=== PATIENT | female | born 1970 | race Caucasian/White ===

== ENCOUNTER 2022-05-18 01:24 | Emergency (ER) | payer BC ==
[2022-05-18 02:18] LABS: Appearance CLEAR (CLEAR); Bilirubin NEGATIVE (NEGATIVE); Dipstick done @ ? MAIN LAB; Glucose NEGATIVE (NEGATIVE); Ketones NEGATIVE (NEGATIVE); Nitrite NEGATIVE (NEGATIVE); Protein,Urine Dip NEGATIVE (Negative); RBC NEGATIVE Ery/ul (0-5); Urobilinogen 0.2 mg/dL (0-1)
[2022-05-18 02:20] LABS: Bacteria RARE /HPF (NEGATIVE); Mucus SLIGHT /HPF (NEGATIVE); Urine Cultured Indicated? NO
[2022-05-18 02:23] LABS: INFLUENZA B NEGATIVE (NEGATIVE); RESPIRATORY SYNCTIAL VIRUS NEGATIVE (Negative); SARS-CoV-2 Xpert Express NEGATIVE (NEGATIVE)
[2022-05-18 02:24] LABS: INFLUENZA A POSITIVE (NEGATIVE)
[2022-05-18] MEDS ORDERED: Sodium Chloride 0.9% 1000 ML 1,000 ML ONE (02:27)
[2022-05-18] MEDS ORDERED: Sodium Chloride 0.9% 1000 ML 1,000 ML IV SCH (02:30)
--- NOTE | 2022-05-18 02:34 | ERPHSYRPT ---
- History of Present Illness Time Seen by Provider: 05/18/22 02:29 Exam Limitations: no limitations Patient Subjective Stated Complaint: cough, congestion, fatigue x2 weeks. Triage Nursing Assessment: pt ambulated into ER without diff, spouse at bedside. Pt c/o feeling sick x2 weeks and has been treated for RSV due to her grandbaby having it. Pt has been treated over the last 2 weeks with amoxicillin, prednisone, augmentin and promethazine. Pt has had a fever off and on, night sweats, nonprod cough, headache, loss of taste and smell, and fatigue. Lungs clear but diminished throughout ant and post, heart tones reg. Physician History: Patient is a 51-year-old female presents to our ED with 2-week history of feeling unwell. Patient has been experiencing fever cough shortness of breath. Patient was exposed to RSV. Patient did follow-up with her primary care provider. Patient was treated with amoxicillin and prednisone. Patient did not significantly improve and she was then treated with Augmentin. Patient currently on Augmentin. Patient denies pain but states she has lost her taste. No nausea or vomiting. No diarrhea. No rash. Patient has a history of COVID with subsequent chronic recurrent pericarditis. Patient is on colchicine for this. 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 Patient voices no other complaints or concerns at this time. Portions of this note were created with voice recognition technology. There may be grammatical, spelling, punctuation or sound alike errors Timing/Duration: today Severity: moderate Modifying Factors: Improves With: nothing Allergies/Adverse Reactions: acetaminophen [From Vicodin] Allergy (Severe, Verified 05/18/22 01:47) Tightness of Throat hydrocodone [From Vicodin] Allergy (Severe, Verified 05/18/22 01:47) Tightness of Throat Home Medications: Amox Tr/Potass Clav. 875 mg [Augmentin 875-125 Tablet] 1 tab PO BID 05/18/22 [History] Colchicine 0.6 mg PO HS 05/18/22 [History] Cyanocobalamin 1000 Mcg/ml [Cyanocobalamin B-12 1000 MCG/ML] 1,000 mcg SQ UD 05/18/22 [History] Meloxicam [Mobic] 7.5 mg PO HS 05/18/22 [History] Prednisone 20 mg [Deltasone 20 mg] 1 tab PO DAILY 05/18/22 [History] Promethazine/Dextromethorphan [Promethazine-Dm 6.25-15 mg/5Ml] 5 ml PO Q6H PRN PRN 05/18/22 [History] Propranolol HCl 60 mg PO HS 05/18/22 [History] Ranolazine 500 MG [Ranexa 500 MG] 1 tab PO HS 05/18/22 [History] Topiramate [Topamax] 50 mg PO HS 05/18/22 [History] Venlafaxine HCl [Effexor Xr] 150 mg PO HS 05/18/22 [History] Hx Tetanus, Diphtheria Vaccination/Date Given: Yes Hx Influenza Vaccination/Date Given: No Hx Pneumococcal Vaccination/Date Given: No Travel Risk - International Travel Have you traveled outside of the country in past 3 weeks: No - Coronavirus Screening Are you exhibiting any of the following symptoms?: Yes Symptoms: Fever, Cough: New Onset, Shortness of Breath, Loss of Taste or Smell, Headaches/Body Aches/Fatigue Close contact with a COVID-19 positive Pt in past 14-21 Days: No - Vaccine Status Have you recieved a Covid-19 vaccination: Yes 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 - Review of Systems Constitutional: No Symptoms, No Fever, No Chills Eyes: No Symptoms Ears, Nose, & Throat: No Symptoms Respiratory: No Symptoms, No Cough, No Dyspnea Cardiac: No Symptoms, No Chest Pain, No Edema, No Syncope Abdominal/Gastrointestinal: No Symptoms, No Abdominal Pain, No Nausea, No Vomiting, No Diarrhea Genitourinary Symptoms: No Symptoms, No Dysuria Musculoskeletal: No Symptoms, No Back Pain, No Neck Pain Skin: No Symptoms, No Rash Neurological: No Symptoms, No Dizziness, No Focal Weakness, No Sensory Changes Psychological: No Symptoms Endocrine: No Symptoms Hematologic/Lymphatic: No Symptoms Immunological/Allergic: No Symptoms All Other Systems: Reviewed and Negative - Past Medical History Pertinent Past Medical History: Yes Neurological History: Migraines Cardiac History: No Pertinent History Respiratory History: Bronchitis, Pneumonia Endocrine Medical History: Hypothyroidism Musculoskeletal History: Fibromyalgia, Other Other Medical History: bone spur on R foot. covid +. pericarditis - Past Surgical History Past Surgical History: Yes Musculoskeletal: Orthopedic Surgery Female Surgical History: Hysterectomy Other Surgical History: knee surgery. hand surgery - Social History Smoking Status: Never smoker Exposure to second hand smoke: No Drug Use: none Patient Lives Alone: No - Nursing Vital Signs Nursing Vital Signs: Initial Vital Signs Temperature 99.3 F 05/18/22 01:31 Pulse Rate 115 H 05/18/22 01:31 Respiratory Rate 18 05/18/22 01:31 Blood Pressure 151/97 05/18/22 01:31 O2 Sat by Pulse Oximetry 95 05/18/22 01:31 Pain Scale Pain Intensity 6 - Physical Exam General Appearance: no apparent distress, alert Eye Exam: PERRL/EOMI, eyes nml inspection Ears, Nose, Throat Exam: normal ENT inspection, TMs normal, pharynx normal, moist mucous membranes Neck Exam: normal inspection, non-tender, supple, full range of motion Respiratory Exam: normal breath sounds, lungs clear, airway intact, No respiratory distress Cardiovascular Exam: regular rate/rhythm, normal heart sounds, normal peripheral pulses Gastrointestinal/Abdomen Exam: soft, normal bowel sounds, No tenderness, No mass Back Exam: normal inspection, normal range of motion, No CVA tenderness, No vertebral tenderness Extremity Exam: normal inspection, normal range of motion, pelvis stable Neurologic Exam: alert, oriented x 3, cooperative, normal mood/affect, nml cerebellar function, nml station & gait, sensation nml, No motor deficits Skin Exam: normal color, warm, dry, No rash Lymphatic Exam: No adenopathy SpO2 Interpretation: normal SpO2: 97 O2 Delivery: Room Air - Course Nursing assessment & vital signs reviewed: Yes - Radiology Exams Chest X-ray Interpretation: Interpreted by me (Negative chest x-ray. No infiltrate or consolidation. Normal cardiac silhouette intact bony thorax) Ordered Tests: Active Orders 24 hr Category Date Time Status Rubber Cutter STAT Care 05/18/22 02:21 Active EKG-ER Only STAT Care 05/18/22 02:19 Active IV Insertion STAT Care 05/18/22 02:19 Active Pulse Oximetry (ED) STAT Care 05/18/22 02:19 Active CHEST 1 VIEW (PORTABLE) Stat Exams 05/18/22 02:26 Taken CBC W DIFF Stat Lab 05/18/22 02:36 Completed CMP Stat Lab 05/18/22 02:36 Completed D-DIMER QUANTITATIVE Stat Lab 05/18/22 02:36 Completed NT PRO BNP Stat Lab 05/18/22 02:36 Completed TROPONIN Q4H Lab 05/18/22 02:36 Completed TROPONIN Q4H Lab 05/18/22 06:30 Ordered TROPONIN Q4H Lab 05/18/22 10:30 Ordered UA W/RFX CULTURE Stat Lab 05/18/22 02:13 Completed Medication Summary Generic Name Dose Route Start Last Admin Trade Name Freq PRN Reason Stop Dose Admin Sodium Chloride 1,000 mls @ 100 mls/hr 05/18/22 02:30 05/18/22 02:30 Sodium Chloride 0.9% 1000 Ml IV 06/17/22 02:29 100 mls/hr .Q10H NGHIA Administration Discontinued Medications Generic Name Dose Route Start Last Admin Trade Name Freq PRN Reason Stop Dose Admin Acetaminophen 975 mg 05/18/22 02:36 05/18/22 02:48 Acetaminophen 325 Mg Tablet PO 05/18/22 02:37 975 mg STAT ONE Administration Acetaminophen Confirm 05/18/22 02:47 Acetaminophen 325 Mg Tablet Administered 05/18/22 02:48 Dose 975 mg .ROUTE .[place] Lab/Rad Data: Laboratory Result Diagrams 05/18/22 02:36 05/18/22 02:36 Laboratory Results 05/18/22 05/18/22 05/18/22 Range/Units 02:36 02:36 02:36 WBC (4.0-10.5) x10^3/uL RBC (4.1-5.4) x10^6/uL Hgb (12.0-16.0) g/dL Hct (35-47) % MCV (78-100) fL MCH (26-32) pg MCHC (32-36) g/dL RDW (11.5-14.0) % Plt Count (150-450) x10^3/uL MPV (7.5-11.0) fL Gran % (36.0-66.0) % Immature Gran % (Auto) (0.00-0.4) % Nucleat RBC Rel Count (0.00-0.1) % Eos # (Auto) (0-0.5) x10^3/uL Immature Gran # (Auto) (0.00-0.03) x10^3u/L Absolute Lymphs (auto) (1.0-4.6) x10^3/uL Absolute Monos (auto) (0.0-1.3) x10^3/uL Absolute Nucleated RBC (0.00-0.01) x10^3u/L Lymphocytes % (24.0-44.0) % Monocytes % (0.0-12.0) % Eosinophils % (0.00-5.0) % Basophils % (0.0-0.4) % Absolute Granulocytes (1.4-6.9) x10^3/uL Basophils # (0-0.4) x10^3/uL D-Dimer < 0.19 (0.0-0.50) mg/L Sodium 137 (137-145) mmol/L Potassium 4.0 (3.5-5.1) mmol/L Chloride 105 (98-107) mmol/L Carbon Dioxide 23 (22-30) mmol/L Anion Gap 12.5 (5-15) MEQ/L BUN 21 H (7-17) mg/dL Creatinine 0.91 (0.52-1.04) mg/dL Estimated GFR > 60.0 ML/MIN Glucose 148 H (74-106) mg/dL Calcium 9.0 (8.4-10.2) mg/dL Total Bilirubin 0.40 (0.2-1.3) mg/dL AST 29 (14-36) U/L ALT 28 (0-35) U/L Alkaline Phosphatase 90 (38-126) U/L Troponin I < 0.012 (0.000-0.034) ng/mL NT-Pro-B Natriuret Pep 36.6 (0-900) pg/mL Serum Total Protein 7.0 (6.3-8.2) g/dL Albumin 4.1 (3.5-5.0) g/dL Urinalys Dipstick Clnc Urine Color (YELLOW) Urine Appearance (CLEAR) Urine pH (5-6) Ur Specific [place] (1.005-1.025) POC Urine Protein Conf (Negative) Urine Ketones (NEGATIVE) Urine Nitrite (NEGATIVE) Urine Bilirubin (NEGATIVE) Urine Urobilinogen (0-1) mg/dL Urine Leukocytes (NEGATIVE) Urine WBC (Auto) (0-5) /HPF Urine RBC (Auto) (0-2) /HPF U Epithel Cells (Auto) (FEW) /HPF Urine Bacteria (Auto) (NEGATIVE) /HPF Urine RBC (0-5) Osei/ul Urine Mucus (Auto) (NEGATIVE) /HPF Ur Culture Indicated? Urine Glucose (NEGATIVE) mg/dL Influenza Type A Ag (NEGATIVE) Influenza Type B Ag (NEGATIVE) RSV (PCR) (Negative) SARS-CoV-2 (PCR) (NEGATIVE) Group A Strep Antibody (NEGATIVE) Slides for Path Review 05/18/22 05/18/22 05/18/22 Range/Units 02:36 02:13 01:43 WBC 13.0 H (4.0-10.5) x10^3/uL RBC 4.81 (4.1-5.4) x10^6/uL Hgb 15.1 (12.0-16.0) g/dL Hct 46.5 (35-47) % MCV 96.7 (78-100) fL MCH 31.4 (26-32) pg MCHC 32.5 (32-36) g/dL RDW 12.8 (11.5-14.0) % Plt Count 311 (150-450) x10^3/uL MPV 9.8 (7.5-11.0) fL Gran % 84.7 H (36.0-66.0) % Immature Gran % (Auto) 0.6 H (0.00-0.4) % Nucleat RBC Rel Count 0.0 (0.00-0.1) % Eos # (Auto) 0.24 (0-0.5) x10^3/uL Immature Gran # (Auto) 0.08 H (0.00-0.03) x10^3u/L Absolute Lymphs (auto) 0.51 L (1.0-4.6) x10^3/uL Absolute Monos (auto) 1.12 (0.0-1.3) x10^3/uL Absolute Nucleated RBC 0.00 (0.00-0.01) x10^3u/L Lymphocytes % 3.9 L (24.0-44.0) % Monocytes % 8.6 (0.0-12.0) % Eosinophils % 1.8 (0.00-5.0) % Basophils % 0.4 (0.0-0.4) % Absolute Granulocytes 11.04 H (1.4-6.9) x10^3/uL Basophils # 0.05 (0-0.4) x10^3/uL D-Dimer (0.0-0.50) mg/L Sodium (137-145) mmol/L Potassium (3.5-5.1) mmol/L Chloride (98-107) mmol/L Carbon Dioxide (22-30) mmol/L Anion Gap (5-15) MEQ/L BUN (7-17) mg/dL Creatinine (0.52-1.04) mg/dL Estimated GFR ML/MIN Glucose (74-106) mg/dL Calcium (8.4-10.2) mg/dL Total Bilirubin (0.2-1.3) mg/dL AST (14-36) U/L ALT (0-35) U/L Alkaline Phosphatase (38-126) U/L Troponin I (0.000-0.034) ng/mL NT-Pro-B Natriuret Pep (0-900) pg/mL Serum Total Protein (6.3-8.2) g/dL Albumin (3.5-5.0) g/dL Urinalys Dipstick Clnc MAIN LAB Urine Color YELLOW (YELLOW) Urine Appearance CLEAR (CLEAR) Urine pH 7.0 (5-6) Ur Specific [place] 1.020 (1.005-1.025) POC Urine Protein Conf NEGATIVE (Negative) Urine Ketones NEGATIVE (NEGATIVE) Urine Nitrite NEGATIVE (NEGATIVE) Urine Bilirubin NEGATIVE (NEGATIVE) Urine Urobilinogen 0.2 (0-1) mg/dL Urine Leukocytes SMALL A (NEGATIVE) Urine WBC (Auto) 3-5 A (0-5) /HPF Urine RBC (Auto) NONE (0-2) /HPF U Epithel Cells (Auto) NONE (FEW) /HPF Urine Bacteria (Auto) RARE (NEGATIVE) /HPF Urine RBC NEGATIVE (0-5) Osei/ul Urine Mucus (Auto) SLIGHT A (NEGATIVE) /HPF Ur Culture Indicated? NO Urine Glucose NEGATIVE (NEGATIVE) mg/dL Influenza Type A Ag (NEGATIVE) Influenza Type B Ag (NEGATIVE) RSV (PCR) (Negative) SARS-CoV-2 (PCR) (NEGATIVE) Group A Strep Antibody NOT DETECTED (NEGATIVE) Slides for Path Review YES 05/18/22 Range/Units 01:43 WBC (4.0-10.5) x10^3/uL RBC (4.1-5.4) x10^6/uL Hgb (12.0-16.0) g/dL Hct (35-47) % MCV (78-100) fL MCH (26-32) pg MCHC (32-36) g/dL RDW (11.5-14.0) % Plt Count (150-450) x10^3/uL MPV (7.5-11.0) fL Gran % (36.0-66.0) % Immature Gran % (Auto) (0.00-0.4) % Nucleat RBC Rel Count (0.00-0.1) % Eos # (Auto) (0-0.5) x10^3/uL Immature Gran # (Auto) (0.00-0.03) x10^3u/L Absolute Lymphs (auto) (1.0-4.6) x10^3/uL Absolute Monos (auto) (0.0-1.3) x10^3/uL Absolute Nucleated RBC (0.00-0.01) x10^3u/L Lymphocytes % (24.0-44.0) % Monocytes % (0.0-12.0) % Eosinophils % (0.00-5.0) % Basophils % (0.0-0.4) % Absolute Granulocytes (1.4-6.9) x10^3/uL Basophils # (0-0.4) x10^3/uL D-Dimer (0.0-0.50) mg/L Sodium (137-145) mmol/L Potassium (3.5-5.1) mmol/L Chloride (98-107) mmol/L Carbon Dioxide (22-30) mmol/L Anion Gap (5-15) MEQ/L BUN (7-17) mg/dL Creatinine (0.52-1.04) mg/dL Estimated GFR ML/MIN Glucose (74-106) mg/dL Calcium (8.4-10.2) mg/dL Total Bilirubin (0.2-1.3) mg/dL AST (14-36) U/L ALT (0-35) U/L Alkaline Phosphatase (38-126) U/L Troponin I (0.000-0.034) ng/mL NT-Pro-B Natriuret Pep (0-900) pg/mL Serum Total Protein (6.3-8.2) g/dL Albumin (3.5-5.0) g/dL Urinalys Dipstick Clnc Urine Color (YELLOW) Urine Appearance (CLEAR) Urine pH (5-6) Ur Specific [place] (1.005-1.025) POC Urine Protein Conf (Negative) Urine Ketones (NEGATIVE) Urine Nitrite (NEGATIVE) Urine Bilirubin (NEGATIVE) Urine Urobilinogen (0-1) mg/dL Urine Leukocytes (NEGATIVE) Urine WBC (Auto) (0-5) /HPF Urine RBC (Auto) (0-2) /HPF U Epithel Cells (Auto) (FEW) /HPF Urine Bacteria (Auto) (NEGATIVE) /HPF Urine RBC (0-5) Osei/ul Urine Mucus (Auto) (NEGATIVE) /HPF Ur Culture Indicated? Urine Glucose (NEGATIVE) mg/dL Influenza Type A Ag POSITIVE (NEGATIVE) Influenza Type B Ag NEGATIVE (NEGATIVE) RSV (PCR) NEGATIVE (Negative) SARS-CoV-2 (PCR) NEGATIVE (NEGATIVE) Group A Strep Antibody (NEGATIVE) Slides for Path Review - Progress Progress: improved Progress Note: Patient has a history of allergy to Vicodin. She is not allergic to acetam inophen per patient 05/18/22 02:38 EKG suggestive of electrical alternans. Patient reassessed. She feels much better. Heart rate improved from 115-89. IV fluids administered. Patient received acetaminophen as she self administered ibuprofen couple hours prior to arrival. D-dimer negative. Troponin was ordered to assess for possible myocarditis as patient has a history of pericarditis. Troponin was negative. Chest x-ray negative for acute pathology. Patient has a slight leukocytosis. Work-up significant for influenza A. No indication for further evaluation at this time. Will discharge home. Patient has no chest pain or shortness of breath. Vitals stable. Patient will follow up with her classifying machine operator to obtain an outpatient echocardiogram to assess for possible pericardial effusion. Patient requesting discharge at this time. She agrees to follow-up with her primary care provider and/or her classifying machine operator within 48 hours for reevaluation. Portions of this note were created with voice recognition technology. There may be grammatical, spelling, punctuation or sound alike errors 05/18/22 03:47 Patient symptoms have been ongoing for approximately 2 weeks. Patient is not a candidate for Tamiflu as she is outside of the 48-hour window 05/18/22 03:50 Counseled pt/family regarding: lab results, diagnosis, need for follow-up, rad results - Departure Departure Disposition: Home Clinical Impression: Influenza A, Electrical alternans Condition: Stable Critical Care Time: No Referrals: JONNY NAYLOR MD [Primary Care Provider] - Follow up/PCP as directed Additional Instructions: Discharge/Care Plan GWEN SOLIS was seen on 05/18/22 in the Emergency Room. The patient was counseled regarding Diagnosis,Lab results, Imaging studies, need for follow up and when to return to the Emergency Room. Prescriptions given: Discharge Note I have spoken with the patient and/or caregivers. I have explained the patient's condition, diagnosis and treatment plan based on the information available to me at this time. I have answered the patient's and/or caregiver's questions and addressed any concerns. The patient and/or caregivers have as good understanding of the patient's diagnosis, condition and treatment plan as can be expected at this point. The vital signs have been stable. The patient's condition is stable and appropriate for discharge from the emergency department. The patient will pursue further outpatient evaluation with the primary care physician or other designated or consulting physician as outlined in the discharge instructions. The patient and/or caregivers are agreeable to this plan of care and follow-up instructions have been explained in detail. The patient and/or caregivers have received these instruction. The patient/and or caregivers are aware that any significant change in condition or worsening of symptoms should prompt an immediate return to this or the closest emergency department or call 911.
[2022-05-18] MEDS ORDERED: TYLENOL 325 MG PO ONE (02:36)
[2022-05-18 02:43] LABS: Absolute Neutrophil Ct (ANC) 11.04 x10^3/uL (1.4-6.9); Basophil (Absolute #) 0.05 x10^3/uL (0-0.4); Eosinophil % 1.8 % (0.00-5.0); Eosinophil (Absolute #) 0.24 x10^3/uL (0-0.5); Hematocrit 46.5 % (35-47); Hemoglobin 15.1 g/dL (12.0-16.0); Lymphocyte (Absolute #) 0.51 x10^3/uL (1.0-4.6); Lymphocytes % 3.9 % (24.0-44.0); Mean Cell Volume 96.7 fL (78-100); Mean Corpuscular Hemoglobin 31.4 pg (26-32); Mean Corpuscular Hgb Concent. 32.5 g/dL (32-36); Mean Platelet Volume 9.8 fL (7.5-11.0); Monocyte (Absolute #) 1.12 x10^3/uL (0.0-1.3); Monocytes % 8.6 % (0.0-12.0); Neutrophil % 84.7 % (36.0-66.0); Platelet Count 311 x10^3/uL (150-450); Red Blood Count 4.81 x10^6/uL (4.1-5.4); Red Cell Distribution Width 12.8 % (11.5-14.0)
[2022-05-18] MEDS ORDERED: TYLENOL 325 MG ONE (02:47)
[2022-05-18 03:02] LABS: ALBUMIN 4.1 g/dL (3.5-5.0); ALKALINE PHOSPHATASE 90 U/L (38-126); ANION GAP 12.5 MEQ/L (5-15); BLOOD UREA NITROGEN 21 mg/dL (7-17); CHLORIDE 105 mmol/L (98-107); Carbon Dioxide 23 mmol/L (22-30); Creatinine 1 0.91 mg/dL (0.52-1.04); EST GLOMERULAR FILTRATION RATE > 60.0 ML/MIN; Glucose 148 mg/dL (74-106); NT PRO BNP 36.6 pg/mL (0-900); SGOT/AST 29 U/L (14-36); SGPT/ALT 28 U/L (0-35); SODIUM 137 mmol/L (137-145)
[2022-05-18 03:05] VITALS: BP 103/75
[2022-05-18 03:10] LABS: Slide Review 1 YES
[2022-05-18 03:55] VITALS: PULSE 89; O2SAT 98
--- NOTE | 2022-05-18 08:48 | XRAY ---
Exam: AP upright portable chest film from 05/18/2022. Comparison: Two-view chest from 01/16/2022. Indication: 51-year-old female with cough/fever; question of pneumonia. Findings: 2 images were obtained because of slight cut off of the superior margin of the lung apices on the initial radiograph. The heart size and contour are normal. The ondina and mediastinal structures appear unremarkable. The lungs are well expanded and reveal no air space infiltrates, vascular congestion, pneumothorax, or pleural fluid. There is a mild rotary levoscoliosis centered at T3 representing no significant change. No acute osseous process is seen. Impression: 1. No air space infiltrates to suggest pneumonia or other acute cardiopulmonary disease is seen. 2. Mild upper thoracic rotary levoscoliosis centered at T3, unchanged.
== END 2022-05-18 03:55 | disposition home or self-care (01) ==
LOC: ED 01:24
DX: J10.1 Influenza due to other identified influenza virus with other respiratory manifestations (principal); R94.31 Abnormal electrocardiogram [ECG] [EKG]; R50.9 Fever, unspecified; R05.9 Cough, unspecified; R06.02 Shortness of breath; R43.9 Unspecified disturbances of smell and taste; Z86.16 Personal history of COVID-19; Z79.52 Long term (current) use of systemic steroids; Z79.899 Other long term (current) drug therapy
CPT/HCPCS: 0241U; 36000; 36415; 71045; 80053; 81015; 83880; 84484; 85025; 85379; 87651; 93005; 93041; 94760; 96374; 99284; 96360; A9270-GY